=== PATIENT | male | born 1940 | race Caucasian/White ===

== ENCOUNTER 2019-10-15 15:18 | Emergency (ER) | payer MEDICARE, BC ==
--- NOTE | 2019-10-15 15:56 | EDM.PDOC ---
ED HPI GENERAL MEDICAL PROBLEM - General Chief Complaint: Trauma Stated Complaint: FELL, ABRASION TO BACK OF HEAD Time Seen by Provider: 10/15/19 15:40 Source of Information: Reports: Patient, Family History Limitations: Reports: No Limitations - History of Present Illness INITIAL COMMENTS - FREE TEXT/NARRATIVE: This patient presents to the ED for evaluation following a fall. He states he fell backward and hit his head on a deck. He denies any loss of consciousness. He is complaining about right shoulder pain. He denies other injuries or concerns. Onset: Sudden Quality: Reports: Ache - Related Data Allergies Allergy/AdvReac Type Severity Reaction Status Date / Time No Known Allergies Allergy Verified 10/15/19 15:55 Home Meds: Home Meds Valsartan/Hydrochlorothiazide [Valsartan-Hctz 320-25 mg Tab] 1 each PO DAILY [History] Review of Systems - Review of Systems Review Of Systems: See Below Constitutional: Reports: No Symptoms Eyes: Reports: No Symptoms Ears: Reports: No Symptoms Nose: Reports: No Symptoms Mouth/Throat: Reports: No Symptoms Respiratory: Reports: No Symptoms Cardiovascular: Reports: No Symptoms Musculoskeletal: Reports: No Symptoms Neurological: Reports: No Symptoms ED EXAM, GENERAL - Physical Exam Exam: See Below Exam Limited By: No Limitations General Appearance: Alert, WD/WN, No Apparent Distress Eye Exam: Bilateral Eye: PERRL Ears: Normal External Exam, Hearing Grossly Normal Nose: Normal Inspection Throat/Mouth: Normal Inspection Head: Normocephalic, Other (small abrasion posterior scalp; 0.5 cm laceration to posterior scalp.) Neck: Normal Inspection, Non-Tender, Full Range of Motion Respiratory/Chest: No Respiratory Distress, Lungs Clear, Normal Breath Sounds Back Exam: Normal Inspection Extremities: Other (right shoulder tender with palpation, ROM limited by pain. No open injuries, swelling, discoloration, or dermity noted. Distal CMS intact.) Course - Orders/Labs/Meds Orders: Active Orders 24 hr Category Date Time Status Shoulder Comp Rt [CR] Stat Exams 10/15/19 15:47 Ordered - Re-Assessments/Exams Free Text/Narrative Re-Assessment/Exam: 10/15/19 16:23 This patient presents to the ED for evaluation of injuries sustained in a fall. History and clinical findings are most consistent with soft tissue injuries. A plain film series of the right should was negative for acute findings. He does have a very small laceration to his posterior scalp that did not require sutures. Supportive care measures were discussed and he was stable at the time of discharge. Departure - Departure Time of Disposition: 16:30 Disposition: Home, Self-Care 01 Condition: Good Clinical Impression: Shoulder contusion, Abrasion, Puncture wound - Discharge Information *PRESCRIPTION DRUG MONITORING PROGRAM REVIEWED*: No Referrals: PCP,None [Primary Care Provider] - Forms: ED Department Discharge - My Orders Last 24 Hours: My Active Orders 10/15/19 15:47 Shoulder Comp Rt [CR] Stat - Assessment/Plan Last 24 Hours: My Active Orders 10/15/19 15:47 Shoulder Comp Rt [CR] Stat
[2019-10-15] MEDS ORDERED: Bacitracin Oint 1 GM U/D Packet TOP ONE (16:15)
[2019-10-15 20:43] VITALS: BP 132/72; PULSE 76
--- NOTE | 2019-10-16 10:12 | CR ---
DATE OF SERVICE: 10/15/19 CLINICAL DATA: trauma RIGHT SHOULDER: No priors. 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 There is soft tissue calcification in the subacromial region consistent with calcific tendinitis or bursitis. No acute abnormalities. [id number] MTDD
== END 2019-10-15 16:46 | disposition home or self-care (01) ==
LOC: LB.ED 15:18
DX: S01.01XA Laceration without foreign body of scalp, initial encounter (principal); S40.011A Contusion of right shoulder, initial encounter; T14.8XXA Other injury of unspecified body region, initial encounter; W19.XXXA Unspecified fall, initial encounter; W22.03XA Walked into furniture, initial encounter
CPT/HCPCS: 73030-RT; 99283; 99283-25

== ENCOUNTER 2024-07-15 19:56 | Emergency (ER) | payer MEDICARE, BC ==
[2024-07-15] MEDS: Acetaminophen 500 MG Tab PO ONE (20:16)
[2024-07-15 20:31] LABS: BASOPHILS ABSOLUTE AUTO 0.02 K/uL (0.02-0.10); BASOPHILS PERCENT AUTO 0.3 % (0.0-0.5); EOSINOPHILS ABSOLUTE AUTO 0.02 K/uL (0.04-0.40); EOSINOPHILS PERCENT AUTO 0.3 % (1.0-5.0); HEMATOCRIT 37.5 % (40.0-54.0); HEMOGLOBIN 12.7 g/dL (13.0-18.0); LYMPHOCYTES ABSOLUTE AUTO 0.73 K/uL (1.50-4.00); LYMPHOCYTES PERCENT AUTO 9.9 % (20.0-40.0); MEAN CORPUSCULAR HEMOGLOBIN 31.3 pg (27.0-32.0); MEAN CORPUSCULAR HGB CONC 33.9 g/dL (31.0-35.0); MEAN CORPUSCULAR VOLUME 92 fL (76-96); MEAN PLATELET VOLUME 10.1 fL (6.0-10.0); MONOCYTES ABSOLUTE AUTO 0.97 K/uL (0.20-0.80); MONOCYTES PERCENT AUTO 13.1 % (3.0-10.0); NEUTROPHILS ABSOLUTE AUTO 5.64 K/uL (2.00-7.50); NEUTROPHILS PERCENT AUTO 76.4 % (45.0-70.0); PLATELET COUNT,PLT 150 K/uL (150-400); RED BLOOD CELL COUNT 4.06 M/uL (4.50-6.50); RED CELL DISTRIBUTION WIDTH 12.9 % (11.0-16.0); WHITE BLOOD CELL COUNT,WBC 7.4 K/uL (4.0-11.0)
[2024-07-15 20:55] LABS: A/G RATIO 0.9 (0.8-2.0); ALBUMIN 3.4 g/dL (3.4-5.0); ANION GAP 16.4 mmol/L (5.0-15.0); BILIRUBIN TOTAL 0.4 mg/dL (0.0-1.0); BUN/CREATININE RATIO 16.5 (6-25); CALCIUM 8.5 mg/dL (8.5-10.1); CREATININE 2.12 mg/dL (0.70-1.30); EST CRCL DRUG DOSING (CG) 29.49 mL/min; POTASSIUM,K 4.4 mmol/L (3.5-5.1); TROPONIN I HIGH SENSITIVITY 24.9 pg/ml (<=60.4)
[2024-07-15 21:35] LABS: APPEARANCE,URINE CLEAR (CLEAR); BILIRUBIN,URINE NEGATIVE (NEGATIVE); COLOR,URINE YELLOW; GLUCOSE,URINE NEGATIVE (NEGATIVE); KETONES,URINE NEGATIVE (NEGATIVE); LEUKOCYTE ESTERASE,URINE NEGATIVE (NEGATIVE); NITRITE,URINE NEGATIVE (NEGATIVE); OCCULT BLOOD,URINE NEGATIVE (NEGATIVE); PH,URINE 5.5 (5.0-8.0); PROTEIN,URINE 30 mg/dL (NEGATIVE); UROBILINOGEN,URINE 0.2 E.U./dL (0.2-1.0)
[2024-07-15 21:40] LABS: BICARBONATE,VENOUS 18.5 mmol/L (23.0-28.0); PCO2 VENOUS 28.1 mm/Hg (41-51); PH,VENOUS 7.43 (7.31-7.41)
[2024-07-15 21:41] LABS: BASE EXCESS VENOUS -5.8 mm/L (-2-3)
[2024-07-15 21:57] LABS: RBC,URINE 0-5 /HPF; WBC,URINE 0-5 /HPF
[2024-07-15 22:36] VITALS: BP 134/69; PULSE 98
== END 2024-07-15 22:19 | disposition home or self-care (01) ==
LOC: LB.ED 19:56
DX: U07.1 COVID-19 (principal); I10 Essential (primary) hypertension; Z79.01 Long term (current) use of anticoagulants
CPT/HCPCS: 36415; 80053; 81001; 82009; 82803; 83605; 84484; 85025; 93005; 99285; A9270; 93010; 99283; A0425; A0428